=== PATIENT | female | born 1990 | race Caucasian/White ===

== ENCOUNTER 2021-02-21 19:18 | Emergency (ER) | payer MEDICAID, SELFPAY ==
[2021-02-21 19:19] VITALS: BP 128/66; PULSE 107; RESP 18; TEMP 36.8; O2SAT 99; BMI 51.0
[2021-02-21 19:30] VITALS: BP 130/75; PULSE 109; O2SAT 99
--- NOTE | 2021-02-21 19:46 | HMH.EDGENADL ---
ED Disposition Condition on Discharge: Good - Critical Care Critical Care Time: No <RubinChristiano - Last Filed: 02/21/21 19:46> <Gianni Raya - Last Filed: 02/21/21 22:09> Clinical Impression: Vaginal bleeding affecting early Disposition: Home, Self-Care Instructions: DI for Vaginal Bleeding During Additional Instructions: see ob for follow up this week Referrals: James Arceo [Primary Care Provider] - Attestation: On 02/21/21, the high probability of a clinically significant, sudden or life threatening deterioration of the following system(s) required my full and direct attention, intervention and personal management. The time I documented below is in addition to time spent performing reported procedures but includes the following listed in this critical care notation. Medical Decision Making - Medical Records Medical records reviewed: Yes: I reviewed the patient's medical records. - Jerad Inquiry Pt receiving controlled substance: No <Christiano Conklin - Last Filed: 02/21/21 19:46> - Lab Data Lab results reviewed: Yes: I reviewed the patient's lab results. Result diagrams: 02/21/21 19:46 02/21/21 19:46 - US Data US Images: Pelvis ED US Reviewed: Yes: I have viewed radiologist's interpretation <Gianni Raya - Last Filed: 02/21/21 22:09> Vital Signs: 02/21/21 19:19 02/21/21 19:30 02/21/21 20:31 Temperature 98.3 F Temperature Source Oral Pulse Rate 109 H 88 Pulse Rate [Left] 107 H Respiratory Rate 18 Blood Pressure 130/75 110/45 L Blood Pressure [Right Arm] 128/66 Blood Pressure Mean Blood Pressure Mean [Right Arm] 86 Blood Pressure Source Blood Pressure Position 02 Sat by Pulse Oximetry 99 99 100 Oxygen Delivery Method Room Air Room Air 02/21/21 21:13 02/21/21 21:30 Temperature Temperature Source Pulse Rate 96 H Pulse Rate [Left] Respiratory Rate Blood Pressure 103/54 L 102/62 L Blood Pressure [Right Arm] Blood Pressure Mean 58 Blood Pressure Mean [Right Arm] Blood Pressure Source Manual Cuff/ Auscultation Blood Pressure Position Sitting 02 Sat by Pulse Oximetry 100 100 Oxygen Delivery Method Room Air Room Air - Lab Data Lab Results 02/21/21 19:46: WBC 8.8, RBC 4.92, Hgb 14.9, Hct 43.3, MCV 88.1, MCH 30.3, MCHC 34.4, RDW 14.2, Plt Count 313, MPV 8.1, Neut % (Auto) 61.8, Lymph % (Auto) 32.1, Hardy % (Auto) 3.2, Eos % (Auto) 1.9, Baso % (Auto) 1.0, Neut # (Auto) 5.4, Lymph # (Auto) 2.8, Hardy # (Auto) 0.3, Eos # (Auto) 0.2, Baso # (Auto) 0.1 02/21/21 19:46: Sodium 140, Potassium 3.8, Chloride 105, Carbon Dioxide 26, Anion Gap 12.8, BUN 6 L, Creatinine 0.60, Estimated Creat Clear 117, Estimated GFR 117, Est GFR ( Amer) 141, Glucose 92, Calcium 9.4, Total Bilirubin 0.2, AST 31, ALT 13, Alkaline Phosphatase 88, Total Protein 7.6, Albumin 4.4, Globulin 3.2, Albumin/Globulin Ratio 1.4 02/21/21 19:46: HCG, Quant 2430 H 02/21/21 20:18: Urine Color Red, Urine Appearance Cloudy, Urine pH 6.5, Ur Specific Roe 1.020, Urine Protein Negative, Urine Glucose (UA) Negative, Urine Ketones Negative, Urine Blood 3+, Urine Nitrate Negative, Urine Bilirubin Negative, Urine Urobilinogen 0.2, Ur Leukocyte Esterase Negative, Urine RBC 50-100, Urine WBC Occasional, Ur Squamous Epith Cells 3-5, Urine Bacteria 1+ 02/21/21 20:18: Urine HCG, Qual Positive 02/21/21 20:43: Blood Type O Positive Orders (Tests/Meds): ED MEDICATIONS Generic Name Dose Route Start Last Admin Trade Name Freq PRN Reason Stop Dose Admin Sodium Chloride 1,000 mls @ 999 mls/hr 02/21/21 19:30 02/21/21 19:48 Sod Chlor 0.9% 1000ml Bag IV 02/21/21 20:30 999 mls/hr .Q1H1M SIDNEY Administration Discontinued Medications Generic Name Dose Route Start Last Admin Trade Name Freq PRN Reason Stop Dose Admin Acetaminophen 1,000 mg 02/21/21 19:28 02/21/21 19:48 Acetaminophen 500mg Tab PO 02/21/21 19:29 1,000 mg ONCE ONE Administra
--- NOTE | 2021-02-21 19:49 | US_ITS ---
PROCEDURE INFORMATION: Exam: US First Trimester, Transabdominal Exam date and time: 02/21/2021 7:49 PM Age: 30 years old Clinical indication: Antepartum complications; Bleeding; ; Patient HX: PT had spoting tonight-- PT states shes 11w 1 day-- PT not had prev US -- delivering at another facility; Additional info: , vaginal bleeding TECHNIQUE: Imaging protocol: Real-time transabdominal obstetrical ultrasound of the maternal pelvis and a first trimester , less than 14 weeks 0 days, with image documentation. COMPARISON: ABDPELWW CT abdomen pelvis wo/w con 04/25/2018 6:15 PM FINDINGS: Gestation: An eccentric fluid collection is seen in the endometrium compatible with a gestational sac. It measures 2.5 x 1.0 by 2.6 cm. The mean sac diameter is 2.04 cm which gives dates of 6 weeks, 4 days. However, no pole. No yolk sac. MATERNAL: Uterus: Unremarkable. Cervix: Unremarkable. Right ovary/adnexa: Unremarkable ovary. Left ovary/adnexa: Unremarkable ovary. Intraperitoneal space: No intraperitoneal free fluid. IMPRESSION: Findings concerning for nonviable
[2021-02-21 20:03] LABS: Chloride 105 mmol/L (98-107); Sodium 140 mmol/L (136-145)
[2021-02-21 20:04] LABS: Potassium 3.8 mmoL/L (3.5-5.1)
[2021-02-21 20:06] LABS: Alanine Aminotransferase 13 U/L (12-78); Albumin Level 4.4 g/dl (3.5-5.0); Albumin/Globulin Ratio 1.4 (1.1-1.8); Alkaline Phosphatase 88 U/L (38-126); Anion Gap 12.8 mEq/L (5-15); Aspartate Amino Transferase 31 U/L (14-36); Bilirubin,Total 0.2 mg/dl (0.2-1.3); Blood Urea Nitrogen 6 mg/dl (7-17); Calcium 9.4 mg/dl (8.4-10.2); Carbon Dioxide 26 mmol/L (22.0-30.0); Creatinine Clearance Estimated 117 mL/min (50-200); Estimated Glomerular Filt Rate 117 ml/min (>60); GFR (African American) 141 ML/MIN (>60); Globulin 3.2 g/dL (1.3-3.2); Glucose 92 mg/dl (74-100); Total Protein,Serum 7.6 g/dl (6.3-8.2)
[2021-02-21 20:07] LABS: Basophils # 0.1 K/mm3 (0-0.2); Eosinophils # 0.2 K/mm3 (0.0-0.4); Eosinophils % 1.9 % (0.1-12.0); Hematocrit 43.3 % (37.0-47.0); Hemoglobin 14.9 g/dL (12.2-16.2); Lymphocytes # 2.8 K/mm3 (0.7-4.5); Lymphocytes % 32.1 % (10-50); Mean Corpuscular HGB Conc 34.4 g/dL (31.8-35.4); Mean Corpuscular Hemoglobin 30.3 pg (27.0-31.2); Mean Corpuscular Volume 88.1 fl (81-99); Mean Platelet Volume 8.1 fl (7.4-10.4); Monocytes # 0.3 K/mm3 (0.1-1.0); Monocytes % 3.2 % (1.7-9.3); Neutrophils # 5.4 K/mm3 (1.8-7.8); Neutrophils % 61.8 % (37.0-80.0); Platelet Count 313 K/mm3 (142-424); Red Blood Count 4.92 M/mm3 (4.20-5.40); Red Cell Distribution Width 14.2 % (11.5-17.5); White Blood Count 8.8 K/mm3 (4.8-10.8)
[2021-02-21 20:23] LABS: Microscopic, Urine URINE MICROSCOPIC (MICROSCOPIC)
[2021-02-21 20:24] LABS: HCG,Quantitative 2430 mIU/ml (0-5.42)
[2021-02-21 20:29] LABS: Appearance,Urine CLOUDY (Clear); Bilirubin,Urine Negative (Negative); Blood, Urine 3+ (Negative); Color,Urine RED (Yellow); Glucose,Urine (UA) Negative (Negative); Ketones,Urine Negative (Negative); Leukocyte Esterase,Urine Negative (Negative); Nitrate,Urine Negative (Negative); PH,Urine 6.5 (5.0-8.5); Protein,Urine Negative (Negative); Urobilinogen,Urine 0.2 EU/dl (0.2)
[2021-02-21 20:31] VITALS: BP 110/45; PULSE 88; O2SAT 100
[2021-02-21 20:31] LABS: Urine Pregnancy, HCG Qual. Positive (Negative)
[2021-02-21 20:39] LABS: Bacteria,Urine 1+ /lpf; RBC,Urine 50-100 #/hpf (0-3); WBC,Urine Occasional #/hpf (0-3)
[2021-02-21 21:13] VITALS: BP 103/54; O2SAT 100
[2021-02-21 21:30] VITALS: BP 102/62; PULSE 96; O2SAT 100
[2021-02-21 22:19] VITALS: BP 102/62; PULSE 94; RESP 16; TEMP 37.1; O2SAT 100
== END 2021-02-21 22:22 | disposition home or self-care (01) ==
PROVIDERS: Emergency Provider Emergency Medicine; PCP Pediatrics
DX: O20.9 Hemorrhage in early pregnancy, unspecified (principal); Z3A.11 11 weeks gestation of pregnancy
CPT/HCPCS: 76801; 80053; 81001; 81025; 84702; 85025; 86900; 86901; 99282

== ENCOUNTER 2025-03-22 14:08 | Outpatient (CLI) | payer MEDICAID, SELFPAY ==
--- OUTSIDE RECORDS SUMMARY | 2025-01-25 14:20 | XMS_ITS | Encounter Summary ---
Author Organization [facility] Address [address] [place] [address] Care Team Providers Care Linderman Operator Name Role Phone James Arceo MD Primary Care Provider [phone] Encounter Details Date Type Department Care Team (Latest Contact Info) Description 01/25/2025 2:20 PM [place] [address] Antonio Luis MD [address] [place] [address] Bilateral hip pain Social History Tobacco Use Types Packs/Day Years Used Date Smoking Tobacco: Every Day Cigarettes 0.5 17.4 Started: 11/05/2007 Smokeless Tobacco: Never Alcohol Use Standard Drinks/Week Comments No 0 (1 standard drink = 0.6 oz pur e alcohol) [facility] Utilities Answer Date Recorded In the past 12 months has [employer], gas, oil, or water [employer] threatened to shut off services in your home? Already shut off 04/29/2023 Overall Financial Resource Strain (CARDIA) Answe r Date Recorded How hard is it for you to pa y for the very basics like food, housing, medical care, and heating? Somewhat hard 04/29/2023 PHQ-2 Answer Date Recorded PHQ-2 Total Score 0 04/29/2023 [facility] of Occupat ional Health - Occupational Stress Questionnaire Answer Date Recorded Do you feel stress - tense, restless, nervous, or anxious, or unable to sleep at night because your mind is troubled all the time - these days? Not at all 04/29/2023 Exercise Vital Sign Answer Date Recorde d On average, how many days pe r week do you engage in moderate to strenuous exercise (like a brisk walk)? 0 days 04/29/2023 On average, how many minutes do you engage in exercise at this level? 0 min 04/29/2023 Hunger Vital Sign Answer Date Recorded Within the past 12 months, y ou worried that your food would run out before you got the money to buy more. Sometimes true Within the past 12 months, t he food you bought just didn't last and you didn't have money to get more. Sometimes true 08/2023 [facility] IP Transportation Answer D ate Recorded In the past 12 months, has l ack of reliable transportation kept you from medical appointments, meetings, work or from getting things needed for daily living? No 04/29/2023 Sexually Active Control Partners Comments Yes Male Comments No Sex and Gender Information Value Date Recorded Sex Assigned at Not on file Legal Sex Female 11:15 AM EDT Gender Identity Not on file Sexual Orientation Not on file documented as of this encounter Functional Status * Is the person deaf or does he/she have serious difficulty hearing? Answer Date of Assessment Author No 03/29/2020 10:57 AM Candace Shaver RN * Is the person blind or does he/she have serious difficulty seeing even when wearing glasses? Answer Date of Assessment Author No 03/29/2020 10:57 AM Candace Shaver RN * Does this person have serious difficulty walking or climbing stairs? Answer Date of Assessment Author No 03/29/2020 10:57 AM Candace Shaver RN * Does this person have difficulty dressing or bathing? Answer Date of Assessment Author No 03/29/2020 10:57 AM Candace Shaver RN * Because of a physical, mental or emotional condition, does this person have difficulty doing errands alone such as visiting a doctor's office or shopping? Answer Date of Assessment Author No 03/29/2020 10:57 AM Candace Shaver RN documented as of this encounter Mental Status * Because of a physical, mental or emotional condition, does this person have serious difficulty concentrating, remembering or making decisions? Answer Entry Date Author No 03/29/2020 10:57 AM EST Candace Mace RN documented in this encounter Plan of Treatment Not on file documented as of this encounter Goals Goal Patient Goal Type Associated Problems Recent Progress Patient-Stated? Author Maintain a healthy diet, exercise regularly and maintain an ideal body weight General No Grooms, Wendy, CCMA Stay Tobacco Free Lifestyle No Grooms, Wendy, CCMA documented as of this encounter Procedures Procedure Name Priority Date/Time Associated Diagnosis Comments XR HIP BILATERAL 3-4 VIEW Routine 01/25/2025 2:27 PM EST Bilateral hip pain documented in this encounter Results * XR HIP BILATERAL 3-4 VIEW (01/25/2025 2:27 PM EST) Narrative Genericuser, Beni - 01/25/2025 2:27 PM EST Please see physician's note from office encounter for x-ray imaging result Antonio Luis MD IMG DIAGNOSTIC IMAGING ORDERABLES Final Result documented in this encounter Visit Diagnoses Diagnosis Bilateral hip pain Pain in joint, pelvic region and thigh documented in this encounter Care Teams Linderman Operator Relationship Specialty Start Date End Date James Arceo MD [address] [place], [place] [id number] PCP - General Family Medicine 06/21/11 documented as of this encounter
--- OUTSIDE RECORDS SUMMARY | 2025-01-25 14:45 | XMS_ITS | Encounter Summary ---
Author Organization [facility] Address [address] [place] [address] Care Team Providers Care Skid Machine Operator Name Role Phone James Arceo MD Primary Care Provider Reason for Referral * Physical Therapy (Routine) - Pending Review Specialty Diagnoses / Procedures Referred By Tinoac t Referred To Contact Physical Therapy Diagnoses Spondylolysis of lumbar region Antonio Luis MD [address] [place] [address] Phone: tel: fax: Referral ID Status Reason Start Date Expiration Date V isits Requested Visits Authorized [id number] Pending Review 01/25/2025 01/25/2026 1 1 Question Answer Evaluate and Treat Yes Select as appropriate Evaluate and treat appropriately Modalities/Procedures As Indicated Therapeutic Exercise As Indicated Goals: Decrease pain and swelling, Increase function, Increase strength, Increase ROM Additional instructions: Frequency and duration per therapist discretion Medical Necessity: Prevent need for non-conservative measures Reason for Visit * Reason Comments Pain Pain Encounter Details Date Type Department Care Team (Latest Contact Info) Description 01/25/2025 2:45 PM EST Office Visit [facility] [address] [place] [address] Antonio Luis MD [address] [place] [address] Spondylolysis of lumbar region (Primary Dx); Bilateral hip pain Social History Tobacco Use Types Packs/Day Years Used Date Smoking Tobacco: Every Day Cigarettes 0.5 17.4 Started: 11/05/2007 Smokeless Tobacco: Never Alcohol Use Standard Drinks/Week Comments No 0 (1 standard drink = 0.6 oz pur e alcohol) [facility] Utilities Answer Date Recorded In the past 12 months has e electric, gas, oil, or water company threatened to shut off services in your home? Already shut off 04/29/2023 Overall Financial Resource Strain (CARDIA) Answe r Date Recorded How hard is it for you to pa y for the very basics like food, housing, medical care, and heating? Somewhat hard 04/29/2023 PHQ-2 Answer Date Recorded PHQ-2 Total Score 0 04/29/2023 [facility] of Occupat ional Health - Occupational Stress [...] money to get more. Sometimes true 08/2023 [facility] IP Transportation Answer D ate Recorded In [...] Entry Date Author No 03/29/2020 10:57 AM Candace Shaver RN documented in this encounter Ordered Prescriptions Prescription Sig Dispense Quantity Refills Last Filled Start Date End Date cyclobenzaprine (FLEXERIL) 5 mg Oral TabletIndications: Spondylolysis of lumbar region Take 1 Tablet by mouth 3 times daily as needed for Muscle spasms for up to 10 days. 30 Tablet 01/25/2025 5 celecoxib (CELEBREX) 200 mg Oral CapsuleIndications :Spondylolysis of lumbar region Take 1 Capsule by mouth 2 times daily for 30 days. 60 Capsule 01/25/2025 5 documented in this encounter Progress Notes * Antonio Luis MD - 01/25/2025 2:45 PM EST Images from the original note were not included. Name: Adri Liz Age: 34 y.o. Sex : female : 1990 Antonio Luis MD Date of Visit: 01/25/25 CHIEF COMPLAINT: Chief Complaint Patient presents with ??? Left Hip - Pain ??? Right Hip - Pain HISTORY: Patient complains of lower extremity parasthesias. She has had problems with low back and pains that radiates down the extremities occasionally affecting the hip area. This has been starting to affect their activities of daily living. Being upright and walking typically aggravate the symptoms. 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 P ain does radiate towards the buttocks down the leg. Allergies[1] Past Medical History[1] Surgical History[1] PHYSICAL EXAMINATION: General: Well-appearing, pleasant, appropriate affect, no distress, alert and oriented x3. Neuro: Normal neurosensory response to touch. Cardiovascular: No signs of edema. Lymphatic: No signs of lymphangitis. Skin: Intact, warm and dry. Musculoskeletal: Exam of the lumbar spine reveals no scoliosis or kyphosis. Lumbar spine motion testing demonstratesdiminished flexion and extension, lateral rotation, and side flexion. There is mild paraspinal tenderness upon palpation. Positive tenderness to deep palpation of the sciatic notch. Exam for the bilateral hips demonstrate full flexion. No pain upon flexion and internal and external rotation. Abduction and adduction strength is 5/5. Negative logroll exam. Negative for any tenderness throughout the anterolateral or posterior thigh. Negative Stinchfield test. Negative CHINO anterior/posterior impingement signs. Negative VISHAL test. No significant tenderness over lateral hip. No hip abductor weakness or Trendelenburg sign. Exam for the knees is full extension to 0 degrees and flexion to 135. Patellar reflexes are 2+. Negative for any calf pain or swelling. Achilles reflex is 2+. Pulses are palpated bilaterally. Exam demonstrates full dorsiflexion and plantarflexion of the ankles, along with resisted dorsiflexion and plantarflexion. Extensor hallucis longus has full strength. Neurovascularly intact distally. Capillary refill is less than two seconds. IMPRESSION: Sciatica of the lower extremity. PLAN: Diagnoses and all orders for this visit: Spondylolysis of lumbar region - AMB REFERRAL TO PHYSICAL THERAPY - celecoxib (CELEBREX) 200 mg Oral Capsule; Take 1 Capsule by mouth 2 times daily for 30 days. Dispense: 60 Capsule; Refill: 0 - cyclobenzaprine (FLEXERIL) 5 mg Oral Tablet; Take 1 Tablet by mouth 3 times daily as needed for Muscle spasms for up to 10 days. Dispense: 30 Tablet; Refill: 0 Bilateral hip pain - XR HIP BILATERAL 3-4 VIEW; Future - XR LUMBAR SPINE AP AND LATERAL; Future Muscle relaxer. and We are also going to order an PT of the lumbar spine to evaluate and treat any type of disc herniation or nerve root impingement. Celebrex Follow up with someone from our spine team following the treatments to discuss the efficacy of treatment and discuss the need for future treatment. In the meantime, continue activity modification, low back exercises and stretches, and ice as appropriate. Follow back up sooner if there are any otherquestions or concerns. Although I believe that today's exam points to a lumbar source of the patient's leg pain, this does not preclude the possibility of present or future hip pathology for which I would be happy to re-evaluate if necessary. X-RAYS: Two views of the Bilateral hip reveal no acute fracture or dislocation. Mild Hip osteoarthritis. 2-view XR of lumbar spine reveals multilevel degenerative changes Antonio Luis MD [1] Allergies Allergen Reactions ??? Methylprednisolone Other (See Comments) Heart racing, jittery, shaking hands [1] Past Medical History: Diagnosis Date ??? Anemia ??? Headache(784.0) migraine ??? Heartburn [1] Past Surgical History: Procedure Laterality Date ??? ABDOMEN SURGERY as child - surgery on bladder - recurrent UTI ??? ANKLE ARTHROSCOPY Right 05/03/2014 RIGHT ANKLE ARTHROSCOPY WITH OPEN LATERAL LIGAMENT RECONSTRUCTION WITH INTERNAL BRACE; Surgeon: Kana Chung MD; Location: [facility] MAIN OR; Service: Orthopedics ??? ANKLE ARTHROSCOPY Right 05/02/2015 RIGHT ANKLE ARTHROSCOPY; Surgeon: Kana Chung MD; Location: [facility] MAIN OR; Service: Orthopedics ??? ANKLE SURGERY Right 05/03/2014 Surgeon: Kana Chung MD; Location: [facility] MAIN OR; Service: Orthopedics ??? CHOLECYSTECTOMY N/A 11/05/2017 DaVinci Cholecystectomy; Surgeon: Gianni Parsons MD; Location: [facility] MAIN OR; Service: Robotics ??? DENTAL SURGERY wisdom teeth ??? DILATION AND CURETTAGE OF UTERUS N/A 03/22/2021 Dilation and curettage with suction ; Surgeon: Harsha Mills MD; Location: [facility]; Service: Gynecology documented in this encounter Plan of Treatment Scheduled Referrals Name Type Priority Associated Diagnoses Orde r Schedule AMB REFERRAL TO PHYSICAL THERAPY Outpatient Referral Routine Spondylolysis of lumbar region Ordered: 01/25/2025 documented as of this encounter Goals Goal Patient Goal Type Associated Problems Recent Progress Patient-Stated? Author Maintain a healthy diet, exercise regularly and maintain an ideal body weight General No Grooms, Wendy, CCMA Stay Tobacco Free Lifestyle No Grooms, Wendy, CCMA documented as of this encounter Results * XR LUMBAR SPINE AP AND LATERAL (01/25/2025 2:29 PM EST) Narrative Courtney, Audit - 01/25/2025 2:29 PM EST Please see physician's note from office encounter for x-ray imaging result Antonio Luis MD [facility] ORDERABLES Final Result * XR HIP BILATERAL 3-4 VIEW (01/25/2025 2:27 PM EST) Narrative Courtney, Audit - 01/25/2025 2:27 PM EST Please see physician's note from office encounter for x-ray imaging result us Antonio Luis MD [facility] Final Result documented in this encounter Visit Diagnoses Diagnosis Spondylolysis of lumbar region- Primary Acquired spondylolisthesis Bilateral hip pain Pain in joint, pelvic region and thigh Bilateral hip pain Pain in joint, pelvic region and thigh Bilateral hip pain Pain in joint, pelvic region and thigh documented in this encounter Care Teams Skid Machine Operator Relationship Specialty Start Date End Date James Arceo MD [address] [place] [address] PCP - General Family Medicine 06/21/11 documented as of this encounter
--- OUTSIDE RECORDS SUMMARY | 2025-01-25 15:00 | XMS_ITS | Encounter Summary ---
Author Organization [facility] Address [address] [place] [address] Care Team Providers Care Evs Tech Name Role Phone James Arceo MD Primary Care Provider [phone] Encounter Details Date Type Department Care Team (Latest Contact Info) Description 01/25/2025 3:00 PM EST [place] [address] Antonio Luis MD [address] [place] [address] Bilateral hip pain Social History Tobacco Use Types Packs/Day Years Used Date Smoking Tobacco: Every Day Cigarettes 0.5 17.4 Started: 11/05/2007 Smokeless Tobacco: Never Alcohol Use Standard Drinks/Week Comments No 0 (1 standard drink = 0.6 oz pur e alcohol) [facility] Utilities Answer Date Recorded In the past 12 months has [employer], gas, oil, or water [employer] threatened to shut off services in your home? Already shut off 04/29/2023 Overall Financial Resource Strain (CARDIA) Answe r Date Recorded How hard is it for you to pa y for the very basics like food, housing, medical care, and heating? Somewhat hard 04/29/2023 PHQ-2 Answer Date Recorded PHQ-2 Total Score 0 04/29/2023 [facility] of Occupat ional Health - Occupational Stress [...] money to get more. Sometimes true 08/2023 [facility] IP Transportation Answer D ate Recorded In [...] Name Priority Date/Time Associated Diagnosis Comments XR LUMBAR SPINE AP AND LATERAL Routine 01/25/2025 2:29 PM EST Bilateral hip pain documented in this encounter Results * XR LUMBAR SPINE AP AND LATERAL (01/25/2025 2:29 PM EST) Narrative Genericuser, Beni - 01/25/2025 2:29 PM EST Please see physician's note from office encounter for x-ray imaging result Antonio Luis MD IMG DIAGNOSTIC IMAGING ORDERABLES Final Result documented in this encounter Visit Diagnoses Diagnosis Bilateral hip pain Pain in joint, pelvic region and thigh documented in this encounter Care Teams Evs Tech Relationship Specialty Start Date End Date James Arceo MD [address] [place] [address] PCP - General Family Medicine 06/21/11 documented as of this encounter
--- OUTSIDE RECORDS SUMMARY | 2025-03-22 14:13 | XMS_ITS | Clinical Summary ---
Author Organization [facility] Address [address] [place] [address] Phone Care Team Providers Care Brine Tank Operator Name Role Phone James Arceo MD Primary Care Provider [phone] Allergies Active Allergy Reactions Criticality Noted Date Comments Methylprednisolone Other (See Comments) High 022 Heart racing, jittery, shaking hands Medications traZODone (DESYREL) 50 mg Oral TabletIndication s:Insomnia, persistent Take 1 Tablet by mouth nightly. 30 Tablet 2 4 Active loratadine (CLARITIN) 10 mg Oral TabletIndication s:Bronchitis Take 1 Tablet by mouth daily. 30 Tablet 2 5 Active omeprazole (PRILOSEC) 20 mg Oral Capsule, Delayed Release(E.C.)Ind ications:Gastroe sophageal reflux disease without esophagitis Take 1 Capsule by mouth before breakfast for 180 days. 90 Capsule 1 5 06/07/19 26 Active ibuprofen (ADVIL;MOTRIN) 800 mg Oral TabletIndication s:Acute bacterial sinusitis Take 1 Tablet by mouth every 8 hours as needed for Pain. 90 Tablet 2 5 Active celecoxib (CELEBREX) 200 mg Oral CapsuleIndicatio ns:Spondylolysis of lumbar region Take 1 Capsule by mouth 2 times daily for 30 days. 60 Capsule 5 02/25/20 25 Active Problems Problem Noted Date Diagnosed Date Tendinitis of right rotator cuff 11/20/2021 Bicipital tendinitis of right shoulder 2 History of marijuana use 03/27/2020 Overview (03/27/2020): Initial tox positive--> repeat negative Idiopathic scoliosis 07/01/2017 Vitamin D deficiency 06/26/2015 Midline low back pain without sciatica 6 Obesity, morbid, BMI 50 or higher 04/04/2015 Gastritis 02/28/2014 Resolved Problems Problem Noted Date Diagnosed Date Resolved Date Term 04/27/2023 03/09/2024 Right shoulder pain 11/20/2021 03/09/20 24 Missed 03/21/2021 03/09/2024 Overview (03/21/2021): Added automatically from request for surgery [id number] IUGR (intrauterine growth re striction) affecting care of mother 03/27/2020 03/09/2024 Obesity affecting 03/27/2020 03/09/2024 Tobacco use complicating 03/27/2020 03/09/2024 Abnormal echocardiogra m affecting antepartum care of mother 03/27/2020 03/09/2024 Overview (03/27/2020): Initial with [facility]FM abnormal, [facility]- rec careful assessment Gallstones 10/22/2017 03/09/2024 Headache 12/08/2015 07/08/2016 Nausea 02/28/2014 07/08/2016 Encounters Date Type Department Care Team Description 01/25/2025 3:00 PM EST Ancillary Procedure Tony Wilson [id number] [address] Antonio Luis MD Bilateral hip pain 01/25/2025 2:45 PM EST Office Visit Tony Wilson [address] [address] Antonio Luis MD Spondylolysis of lumbar region (Primary Dx); Bilateral hip pain 01/25/2025 2:20 PM EST Ancillary Procedure Tony Wilson [address] [address] Antonio Luis MD Bilateral hip pain 01/17/2025 Telephone [facility] [address], [place] [address] James Arceo MD Other (handicap sticker paper work ); Relaying Information (Scoliosis in back, 4 screws in her right ankle, both hips are bad/) from Last 3 Months Immunizations Immunization Administration Dates Next Due HPV Quadrivalent 01/11/2008,09/07/2007, 8 Hepatitis B, Ped/Adol 12/16/2000,07/29/2000,05/23 Influenza Patient Reported 01/05/2015 MMR 01/20/2003 Moderna SARS-CoV-2 Vaccine 1 2+ Yrs (Light blue border) 11/12/2021,05/14/2021,04/20/2021 PPD Test 06/25/2013 Td (Adult), Absorbed 01/20/2003 Surgical History Surgery Date Site/Laterality Comments ABDOMEN SURGERY as child - surgery on bladder - recurrent UTI ANKLE ARTHROSCOPY 05/03/2014 Right RIGHT ANKLE ARTHROSCOPY WITH OPEN LATERAL LIGAMENT RECONSTRUCTION WITH INTERNAL BRACE; Surgeon: Kana Chung MD; Location: [facility] MAIN OR; Service: Orthopedics Medical devices from this surgery are in the Medical Devices section. ANKLE SURGERY 05/03/2014 Right Surgeon: Kana Chung MD; Location: [facility] MAIN OR; Service: Orthopedics Medical devices from this surgery are in the Medical Devices section. ANKLE ARTHROSCOPY 05/02/2015 Right RIGHT ANKLE ARTHROSCOPY; Surgeon: Kana Chung MD; Location: [facility]; Service: Orthopedics DENTAL SURGERY wisdom teeth CHOLECYSTECTOMY 11/05/2017 N/A DaVinci Cholecystectomy; Surgeon: Gianni Parsons MD; Location: [facility]; Service: Robotics DILATION AND CURETTAGE OF UTERUS 03/22/2021 Uterus/N/A Dilation and curettage with suction ; Surgeon: Harsha Mills MD; [facility]; Service: Gynecology Medical History Medical History Date Comments Headache(784.0) migraine Heartburn Anemia Family History Medical History Relation Name Comments No Known Problems Father Other Maternal Aunt ADHD Diabetes Maternal Grandfather Heart Disease Maternal Grandfather Diabetes Maternal Grandmother Heart Disease Maternal Grandmother Diabetes Mother High Blood Pressure Mother Kidney Disease Mother Anesth Problems Neg Hx Relation Name Status Comments Father Alive Maternal Aunt Alive Maternal Grandfather Maternal Grandmother Mother Alive Social History Tobacco Use Types Packs/Day Years Used Date Smoking Tobacco: Every Day Cigarettes 0.5 17.4 Started: 11/05/2007 Smokeless Tobacco: Never Tobacco Cessation:Ready to Q uit: Not Asked; Counseling Given: Not Answered Alcohol Use Standard Drinks/Week Comments No 0 (1 standard drink = 0.6 oz pur e alcohol) [facility] Utilities Answer Date Recorded In the [...] Date Recorded PHQ-2 Total Score 0 04/29/2023 [facility] - Occupational [...] money to get more. Sometimes true 08/2023 [facility] IP Transportation Answer D ate Recorded [...] on file Sexual Orientation Not on file Obstetrics History Para Term AB IAB SAB Ectopic Multiple Livin g Live Births 4 3 3 0 2 1 Date Outcome GA Total Labor Labor/2nd/3rd Weight Sex Type Anes PTL Yanna A1 A5 Name Clin 2008 Term 40w 0d 6 lb 4 oz (2.835 kg) F Vag-S pont Epidur al Xi Delivery Location:[facility] 2020 Term 38w 4d 0h 05m 0h 05m 4 lb 14.3 oz (2.22 kg) F Vag-S pont None 8 9 JUILFS ,TRICI A BABY Sawyer goncalves, Mindy Franco MD Complications:IUGR (intraute rine growth restriction) affecting care of mother Delivery Location:[facility] ([facility] 2023 Term 39w 0d 6 lb 12.3 oz (3.07 kg) M Vag-S pont Epidur al N Livin g [address], MD Delivery Location:[facility] ([facility]) Last Filed Vital Signs Vital Sign Reading Time Taken Comments Blood Pressure 118/70 10/22/2024 10:44 AM EDT Pulse 76 10/22/2024 10:44 AM EDT Temperature 36.4 C (97.5 F) 10/22/2024 10:44 AM EDT Respiratory Rate 18 10/22/2024 10:44 AM EDT Oxygen Saturation 97% 10/22/2024 10:44 AM EDT Inhaled Oxygen Concentration - - Weight 115.7 kg (255 lb) 10/22/2024 10:44 AM EDT Height 165.1 cm (5' 5 ) 03/09/2024 1:52 PM EST Body Mass Index 42.43 03/09/2024 1:52 PM EST Plan of Treatment Health Maintenance Due Date Last Done Comments Annual Wellness Exam 1992 DTaP/TDaP/Td (2 - Tdap) 01/21/2003 01/20/2003 Pneumococcal Vaccine 0-49 (1 of 2 - PCV) 2008 HPV/Pap Cotest 2019 COVID-19 Vaccine (4 - 2024-2 6 season) 2024 11/12/2021, 05/14/2021, 04/20/2021 Influenza Vaccine (#1) 2024 5, 01/05/2015 Cervical Cancer Screening 11/05/2026 Pap Smear 11/05/2026 11/06/2023, 08/30/2019 Hepatitis B Vaccine Completed 12/16/2000, 07/29/2000, 06/10/2000 Meningococcal B Vaccine Aged Out No l onger eligible based on patient's age to complete this topic Goals Goal Patient Goal Type Associated Problems Recent Progress Patient-Stated? Author Maintain a healthy diet, exercise regularly and maintain an ideal body weight General No Grooms, Wendy, CCMA Stay Tobacco Free Lifestyle No Grooms, Wendy, CCMA Medical Devices Implanted Type Area Corral Boss Device Identifier Shelf Expiration Date Model / Serial / Lot Helper Corkscrew Ft 3.5mm X 10mm Ft W/Lisle - [id number] Implanted:Qty: 1 on 05/03/2014 by Kana Chung MD at [facility] Right: Ankle ARTHREX 03/23/2019 AR-[id number] / / [id number] Helper Corkscrew Ft 3.5mm X 10mm Ft W/Lisle - [id number] Implanted:Qty: 1 on 05/03/2014 by Kana Chung MD at [facility] Right: Ankle ARTHREX 01/21/2019 AR-[id number] / / [id number] Repair Augmentation Ligament Internal Brace - [id number] Implanted:Qty: 1 on 05/03/2014 by Kana Chung MD at [facility] Right: Ankle ARTHREX 02/21/2016 [id number] / / [id number] Procedures Procedure Name Priority Date/Time Associated Diagnosis Comments XR LUMBAR SPINE AP AND LATERAL Routine 01/25/2025 2:29 PM EST Bilateral hip pain XR HIP BILATERAL 3-4 VIEW Routine 01/25/2025 2:27 PM EST Bilateral hip pain BARN HAND CYTOLOGY REQUEST (PAP ONLY) Routine 11/06/2023 1:41 PM EDT Gynecologic exam normal from Last 3 Months or Most Recently Relevant to Health Maintenance Results * XR LUMBAR SPINE AP AND LATERAL (01/25/2025 2:29 PM EST) Narrative Genericuser, Audit - 01/25/2025 2:29 PM EST Please see physician's note from office encounter for x-ray imaging result Antonio Luis MD [facility] [place] [facility] ORDERABLES Final Result * XR HIP BILATERAL 3-4 VIEW (01/25/2025 2:27 PM EST) Narrative Courtney, Audit - 01/25/2025 2:27 PM EST Please see physician's note from office encounter for x-ray imaging result Antonio Luis MD [facility] ORDERABLES Final Result * (ABNORMAL) BARN HAND CYTOLOGY REQUEST (PAP ONLY) (11/06/2023 1:41 PM EDT) CASE REPORT Gynecologic Cytology Report Case: [id number] Authorizing Provider: James Arceo MD Collected: 11/06/2023 1341 Ordering Location: [facility] Received: 11/06/2023 1341 First Screen: Zeferino Seaman, CT Pathologist: Valdez Hoffman MD Specimen: LIQUID-BASED PAP - CERVICAL/ENDOCERV ICAL, Cervix, Endocervical 11/12/2023 11:14 AM EDT [facility] PAP FINAL DIAGNOSIS Low grade squamous intraepithelial lesion(A) 11/12/2023 11:14 AM EDT [facility] at 1114 EDT MICROSCOPIC DESCRIPTION Microscopic examination is performed and the findings corroborate the diagnosis. 11/12/2023 11:14 AM EDT [facility] PAP SMEAR ADEQUACY Satisfactory for evaluation 11/12/2023 11:14 AM EDT [facility] PAP ORGANISMS NOTED Shift in [place] suggestive of bacterial vaginosis. 11/12/2023 11:14 AM EDT [facility] ENDOCERVICAL T-ZONE Transformation zone absent. 11/12/2023 11:14 AM EDT [facility] EMBEDDED IMAGES 11:14 AM EDT [facility] PAP DISCLAIMER The Pap Smear is a screening test that aids in the detection of cervical cancer and cancer precursors. Both false positive and false negative results can occur. The test should be used at regular intervals, and positive results should be confirmed before definitive therapy. Processed using the ThinPrep Floor Mechanic Automated cytology screening device (Comr.se). 11/12/2023 11:14 AM EDT [facility] Thin Prep ENDOCERVICAL STRUCTURE / Unknown 11/06/2023 1:41 PM EDT 11/06/2023 1:41 PM EDT us James Arceo MD CYTOLOGY ORDERABLES Final Resu lt Performing Organization Address City/State/[facility] [place] [address] from Last 3 Months or Most Recently Relevant to Health Maintenance Insurance BY GUERRERO BY [employer] PLAN BY GUERRERO [facility] Member Subscriber Plan / Payer (Ef fective 2020-Present) Name:Adri Liz Relation to Subscriber:Self Name:Adri Liz Payer ID:Not on file Group ID:Not on file Type:Not on file Address: [address] [id number] Advance Directives For more information, please contact: [phone] * Full Code (Latest Code Status on File) Date Activated Date Inactivated Comments 04/27/2023 10:31 PM 04/30/2023 10:22 PM * Full Code Date Activated Date Inactivated Comments 03/27/2020 2:52 PM 03/29/2020 4:34 PM Care Teams Brine Tank Operator Relationship Specialty Start Date End Date [place] [address] [place] [address] PCP - General Family Medicine 06/21/11
--- OUTSIDE RECORDS SUMMARY | 2025-03-22 14:13 | XMS_ITS | Encounter Summary ---
Author Organization [place] Address [facility] [place] [address] Care Team Providers Care Assembler Faucets Name Role Phone James Arceo MD Primary Care Provider [phone] Encounter Details Date Type Department Care Team (Late st Contact Info) Description 03/10/2020 Lab Requisition [facility] [place] [address] Judith Cisneros, [facility] [address] [place] [address] Encounter for screening, unspecified Social History Tobacco Use Types Packs/Day Years Used Date Smoking Tobacco: Every Day Cigarettes 0.5 17.4 Started: 11/05/2007 Smokeless Tobacco: Never Alcohol Use Standard Drinks/Week Comments No 0 (1 standard drink = 0.6 oz pur e alcohol) PHQ-2 Answer Date Recorded PHQ-2 Score 0 07/27/2019 Sexually Active Control Partners Comments Yes Male Comments No Sex and Gender Information Value Date Recorded Sex Assigned at Not on file Legal Sex Female 11:15 AM EDT Gender Identity Not on file Sexual Orientation Not on file COVID-19 Exposure Response Date Recorded In the last month, have you been in contact with someone who was confirmed or suspected to have Coronavirus / COVID-19? No / Unsure 03/06/2020 2:23 PM EST documented as of this encounter Functional Status * Is the person deaf or does he/she have serious difficulty hearing? Answer Date of Assessment Author No 07/27/2019 3:44 PM EDT Angela Raymundo MA * Is the person blind or does he/she have serious difficulty seeing even when wearing glasses? Answer Date of Assessment Author No 07/27/2019 3:44 PM EDT Angela Raymundo MA * Does this person have serious difficulty walking or climbing stairs? Answer Date of Assessment Author No 07/27/2019 3:44 PM EDT Angela Raymundo MA * Does this person have difficulty dressing or bathing? Answer Date of Assessment Author No 07/27/2019 3:44 PM EDT Angela Raymundo MA * Because of a physical, mental or emotional condition, does this person have difficulty doing errands alone such as visiting a doctor's office or shopping? Answer Date of Assessment Author No 07/27/2019 3:44 PM EDT Angela Raymundo MA documented as of this encounter Mental Status * Because of a physical, mental or emotional condition, does this person have serious difficulty concentrating, remembering or making decisions? Answer Entry Date Author No 07/27/2019 3:44 PM EDT Angela Raymundo MA documented in this encounter Plan of Treatment Not on file documented as of this encounter Goals Goal Patient Goal Type Associated Problems Recent Progress Patient-Stated? Author Maintain a healthy diet, exercise regularly and maintain an ideal body weight General No Wendy Watson CCMA Stay Tobacco Free Lifestyle No Wendy Watson CCMA documented as of this encounter Procedures Procedure Name Priority Date/Time Associated Diagnosis Comments STREP B DNA Routine 03/10/2020 12:00 PM EST Encounter for screening, unspecified documented in this encounter Results * STREP B DNA (03/10/2020 12:00 PM EST) Strep B DNA Not Detected Not Detected 0 11:41 AM EST [facility] [employer] Swab RECTUM AND VAGINA, CS / Unknown 03/10/2020 12:00 PM EST 03/10/2020 7:48 PM EST Narrative [facility]REF[facility] [employer] - 03/12/2020 11:41 AM EST TEST INFORMATION: This qualitative assay utilizes molecular amplification to detect a portion of the Streptococcus agalactiae genome and is intended for a screen of antepartum women in 35-37 weeks gestation. A negative result does not rule out the presence the Group B Strep in concentrations below the limit of detection for the assay. us Judith Cisneros CNM MICROBIOLOGY - GENERAL ORDERAB LES Final Result [facility]REFERRED [facility] [address] [facility] , [place] [address] documented in this encounter Visit Diagnoses Diagnosis Encounter for screening, unspecified documented in this encounter Additional Health Concerns Infection Onset Date Last Indicated Resolved Time COVID-19 11/21/2021 11/21/2021 12/11/2021 10:1 2 PM EDT documented as of this encounter Care Teams Assembler Faucets Relationship Specialty Start Date End Date James Arceo MD [address] [place] [id number] PCP - General Family Medicine 06/21/11 documented as of this encounter
--- OUTSIDE RECORDS SUMMARY | 2025-03-22 14:13 | XMS_ITS | Encounter Summary ---
Author Organization [place] [address] Care Team Providers Care Manager Country Name Role Phone James Arceo MD Primary Care Provider [phone] Reason for Visit * Reason Onset Date Comments Other 01/17/2025 handicap sticker paper work Relaying Information 01/17/2025 Scoliosis i n back, 4 screws in her right ankle, both hips are bad Encounter Details Date Type Department Care Team (Late st Contact Info) Description 01/17/2025 Telephone [facility] [place] [address] [address] James Arceo MD COUNTRY [facility] [address] Other (handicap sticker paper work ); Relaying Information (Scoliosis in back, 4 screws in her right ankle, both hips are bad/) Social History Tobacco Use Types Packs/Day Years Used Date Smoking Tobacco: Every Day Cigarettes 0.5 17.4 Started: 11/05/2007 Smokeless Tobacco: Never Alcohol Use Standard Drinks/Week Comments No 0 (1 standard drink = 0.6 oz pur e alcohol) [facility] Utilities Answer Date Recorded In the past 12 months has [employer], gas, oil, or water [employer] threatened to shut off services in your home? Already shut off 04/29/2023 Overall Financial Resource Strain (CARDIA) Answe r Date Recorded How hard is it for you to pa y for the very basics like food, housing, medical care, and heating? Somewhat hard 04/29/2023 PHQ-2 Answer Date Recorded PHQ-2 Total Score 0 04/29/2023 [facility] - Occupational Stress [...] money to get more. Sometimes true 08/2023 [facility] IP Transportation Answer D ate Recorded [...] Assessment Author No 03/29/2020 10:57 AM Candace Shaver, RN * Is the person blind or does he/she have serious difficulty seeing even when wearing glasses? Answer Date of Assessment Author No 03/29/2020 10:57 AM Candace Shaver, RN * Does this person have serious difficulty walking or climbing stairs? Answer Date of Assessment Author No 03/29/2020 10:57 AM Candace Shaver, RN * Does this person have difficulty dressing or bathing? Answer Date of Assessment Author No 03/29/2020 10:57 AM Candace Shaver, RN * Because of a physical, mental [...] Candace Shaver RN documented in this encounter Miscellaneous Notes * Telephone Encounter - Wendy Watson CCMA - 01/17/2025 3:33 PM EDT My chart message sent does not qualify * Telephone Encounter - Judith Rao, Clerical Staff - 01/17/2025 3:24 PM EDT Select the most appropriate reason for this telephone message: Relaying Information Relaying Information Who is Calling: Patient Return Method of Communication:Phone call What information is the caller relaying: Scoliosis in back, 4 screws in her right ankle, both hips are bad Further action needed: No Additional Information:Please Advise Provider, thank you * Telephone Encounter - Patti Xiao MA - 01/17/2025 3:13 PM EDT Left message for Pt regarding previous message. * Telephone Encounter - Wendy Watson CCMA - 01/17/2025 1:46 PM EDT Why does she needs this? She does not qualify thank you * Telephone Encounter - Cristy Ruvalcaba LPN - 01/17/2025 1:35 PM EDT Select the most appropriate reason for this telephone message: Other Who is calling: Patient Return Method of Communication: Phone Call What is needed OR why are they calling: pt is calling to see if the handicap sticker paper work is up at the front counter attendant ready for orange picker. Pt spoke to PCP about the form during the Video Visit When is this needed by: today Where does this information need to go: office Additional information: Please advise,thank you documented in this encounter Plan of Treatment Not on file documented as of this encounter Goals Goal Patient Goal Type Associated Problems Recent Progress Patient-Stated? Author Maintain a healthy diet, exercise regularly and maintain an ideal body weight General No Wendy Watson CCMA Stay Tobacco Free Lifestyle No Wendy Watson CCMA documented as of this encounter Visit Diagnoses Not on filedocumented in this encounter Care Teams Manager Country Relationship Specialty Start Date End Date James Arceo MD [address] [place], [place] [address] PCP - General Family Medicine 06/21/11 documented as of this encounter
--- OUTSIDE RECORDS SUMMARY | 2025-03-22 14:13 | XMS_ITS | Clinical Summary ---
Author Organization [facility]r [facility] are Address [address] [id number] Phone Care Team Providers Care News Video Editor Name Role Phone Unavailable Unavailable Conditions or Problems No information available. Medications No information available. Medications Administered No information available. Allergies, Adverse Reactions, Alerts No information available. Results No information available. Plan of Care No information available. Procedures No information available. Vital Signs No information available. Immunizations No information available. Advance Directives No information available.
--- OUTSIDE RECORDS SUMMARY | 2025-03-22 14:13 | XMS_ITS | Encounter Summary ---
Author Organization [place] [address] Care Team Providers Care Director Of Cloud Services Name Role Phone James Arceo MD Primary Care Provider [phone] Encounter Details Date Type Department Care Team (Late st Contact Info) Description 03/10/2017 Refill [facility] [place] [address] James Arceo MD [address] [facility] [place] [address] Social History Tobacco Use Types Packs/Day Years Used Date Smoking Tobacco: Former Cigarettes 0 05/01/2008 - 05/01/2014 Smokeless Tobacco: Never Alcohol Use Standard Drinks/Week Comments No 0 (1 standard drink = 0.6 oz pur e alcohol) Sexually Active Control Partners Comments Yes Male Comments No Sex and Gender Information Value Date Recorded Sex Assigned at Not on file Legal Sex Female 11:15 AM EDT Gender Identity Not on file Sexual Orientation Not on file documented as of this encounter Ordered Prescriptions Prescription Sig Dispense Quantity Refills Last Filled Start Date End Date propranolol (INDERAL) 10 mg Oral TabletIndications:N onintractable headache, unspecified chronicity pattern, unspecified headache type Take 1 Tab by mouth 2 times daily. 60 Tab 2 03/10/2017 06/25/2017 documented in this encounter Miscellaneous Notes * Telephone Encounter - James Arceo MD - 03/10/2017 3:40 PM EST topamax was ineffective for headache prevention. documented in this encounter Plan of Treatment Not on file documented as of this encounter Goals Goal Patient Goal Type Associated Problems Recent Progress Patient-Stated? Author Maintain a healthy diet, exercise regularly and maintain an ideal body weight General No Wendy Watson CCMA Stay Tobacco Free Lifestyle No Wendy Watson CCMA documented as of this encounter Visit Diagnoses Diagnosis Nonintractable headache, unspecified chronicity pattern, unspecified headache type- Primary documented in this encounter Discontinued Medications Medication Sig Discontinue Reason Start Date End Da te topiramate (TOPAMAX) 25 mg Oral Tablet TAKE ONE TABLET BY MOUTH TWICE DAILY Cancelled by 01/16/2017 03/10/2017 documented as of this encounter Additional Health Concerns Infection Onset Date Last Indicated Resolved Time COVID-19 11/21/2021 11/21/2021 12/11/2021 10:1 2 PM EDT documented as of this encounter Care Teams Director Of Cloud Services Relationship Specialty Start Date End Date James Arceo MD [address] [place], [place] [phone] PCP - General Family Medicine 06/21/11 documented as of this encounter
--- OUTSIDE RECORDS SUMMARY | 2025-03-22 14:13 | XMS_ITS | Clinical Summary ---
Author Organization [facility] Address [address] [place] [id number] Care Team Providers Care [employer] Ambassador Name Role Phone No Pcp, [facility] Primary Care Provider Unavailabl e Source Comments [facility] is fully rolled out with thefollowing exceptions:General Clinical Research [facility] Social History Tobacco Use Types Packs/Day Years Used Date Smoking Tobacco: Never Assessed Comments Unknown Sex and Gender Information Value Date Recorded Sex Assigned at Not on file Legal Sex Female 8:14 AM EST Gender Identity Not on file Sexual Orientation Not on file Plan of Treatment Health Maintenance Due Date Last Done Comments MMR IMMUNIZATION (1 of 1 - Standard series) 1990 DTAP/Tdap/Td IMMUNIZATION (1 - Tdap) 1996 Yearly Physical Ages 3-18+ 2000 VARICELLA IMMUNIZATION (1 of 2 - 13+ 2-dose series) 2002 HEPATITIS B IMMUNIZATION (1 of 3 - 19+ 3-dose series) 2008 AMB SEASONAL FLU VACCINE (#1) 11/22/2024 01/05/2015 COVID-19 Vaccine ( - 2024-2 6 season) 2024 HPV IMMUNIZATION Completed 01/11/2008, 09/07/2007, 07/07/2007 HIB IMMUNIZATION Aged Out No longer e ligible based on patient's age to complete this topic IPV IMMUNIZATION Aged Out No longer e ligible based on patient's age to complete this topic MCV4 IMMUNIZATION Aged Out No longer eligible based on patient's age to complete this topic MENINGOCOCCAL B VACCINE Aged Out No l onger eligible based on patient's age to complete this topic PNEUMOCOCCAL IMMUNIZATION Aged Out No longer eligible based on patient's age to complete this topic Respiratory Syncytial Virus (RSV) <20mo Aged Out No longer eligible b ased on patient's age to complete this topic Insurance Care Teams [employer] Ambassador Relationship Specialty Start Date End Date No Pcp, [facility] PCP - General 03/03/20
== END 2025-03-22 23:59 | disposition home or self-care (01) ==
LOC: LAB 14:09
PROVIDERS: PCP Pediatrics; Visit Provider Nurse Practitioner Obstetrics & Gynecology
DX: Z32.01 Encounter for pregnancy test, result positive (principal)
CPT/HCPCS: 36415; 84144; 84702